=== PATIENT | female | born 1995 | race Caucasian/White ===

== ENCOUNTER 2018-11-30 18:00 | Emergency (ER) | payer MEDICAID ==
[2018-11-30 18:09] VITALS: TEMP 98.4
[2018-11-30] MEDS ORDERED: guaiFENesin 200 mg/10 ml Syrup UD PO ONE (18:32)
--- NOTE | 2018-11-30 18:42 | ED PDOC ---
Arrival/HPI - General Chief Complaint: Cough, Cold, Congestion Time Seen by Provider: 11/30/18 18:13 Historian: Patient - History of Present Illness Narrative History of Present Illness (Text): 11/30/18 18:39 23-year-old female with past medical history of asthma presents to the emergency room complaining of a dry cough for the past 4 days associated with wheezing, headache for the past 2 days, one episode of posttussive vomiting and pain to her chest when she coughs. Otherwise she reports no fever, chills, dizziness, nausea, shortness of breath, back pain, recent travel, sick contacts. Patient has no other complaints. PMD [place] Past Medical History - Tetanus Immunization Tetanus Immunization: Unknown - Pulmonary Hx Asthma: Yes - Psychiatric Hx Depression: No Hx Emotional Abuse: No Hx Physical Abuse: No Hx Substance Use: Yes (Marijuana) - Past Surgical History Past Surgical History: No Previous - Suicidal Assessment Feels Threatened In Home Enviroment: No Family/Social History Family/Social History: No Known Family HX Smoking Status: Never Smoked Hx Alcohol Use: No Hx Substance Use: Yes (Marijuana) Hx Substance Use Treatment: No Allergies/Home Meds Allergies/Adverse Reactions: Allergies No Known Allergies Allergy (Verified 11/30/18 18:09) Home Medications: Home Meds Medication Instructions Recorded Confirmed Albuterol 0.083% [Albuterol 0.083% 3 ml NEB Q6 PRN 11/30/18 11/30/18 Inhal Shakila (2.5 mg/3 ml) UD] Albuterol Sulfate [Ventolin Hfa] 2 puff NEB Q4 PRN 11/30/18 11/30/18 Review of Systems - Review of Systems Constitutional: absent: Fatigue, Fevers ENT: absent: Sore Throat, Rhinorrhea, Epistaxis Respiratory: Cough, Wheezing. absent: SOB, Sputum Cardiovascular: Chest Pain (only with coughing). absent: Palpitations, Edema Gastrointestinal: Vomiting (1 episode of post-tussive vomiting). absent: Abdominal Pain, Nausea Musculoskeletal: absent: Arthralgias, Back Pain, Neck Pain Skin: absent: Rash, Pruritis Neurological: Headache. absent: Dizziness Physical Exam Vital Signs Temp Pulse Resp BP Pulse Ox 11/30/18 18:05 98.4 F 65 18 130/82 99 Temperature: Afebrile Blood Pressure: Normal Pulse: Regular Respiratory Rate: Normal Appearance: Positive for: Well-Appearing, Non-Toxic, Comfortable Pain Distress: None Mental Status: Positive for: Alert and Oriented X 3 - Systems Exam Head: Present: Atraumatic, Normocephalic Pupils: Present: PERRL Extroacular Muscles: Present: EOMI Conjunctiva: Present: Normal Ears: Present: Normal, NORMAL TM Mouth: Present: Moist Mucous Membranes Pharnyx: Present: Normal. No: ERYTHEMA, EXUDATE, TONSILS ENLARGED Neck: Present: Normal Range of Motion. No: Meningeal Signs, Lymphadenopathy Respiratory/Chest: Present: Good Air Exchange, Wheezes (+b/l expiraory wheezing). No: Respiratory Distress, Accessory Muscle Use Cardiovascular: Present: Regular Rate and Rhythm, Normal S1, S2. No: Murmurs Abdomen: No: Tenderness, Distention, Peritoneal Signs Back: Present: Normal Inspection Upper Extremity: Present: Normal Inspection. No: Cyanosis, Edema Lower Extremity: Present: Normal Inspection. No: Edema Neurological: Present: GCS=15, CN II-XII Intact, Speech Normal, Motor Func Grossly Intact, Normal Sensory Function Skin: Present: Warm, Dry, Normal Color. No: Rashes Psychiatric: Present: Alert, Oriented x 3, Normal Insight, Normal Concentration Medical Decision Making ED Course and Treatment: 11/30/18 18:41 Patient medicated with Tylenol p.o., prednisone p.o., and 2 DuoNebs. On reevaluation, patient reports improvement of symptoms, denies any CP or SOB, still reports of a mild headache. On exam, patient remains awake alert and oriented 3 in no acute distress, she is smiling and in good spirits. Neck is supple, lungs are clear to auscultation, cardiac regular rate and rhythm, repeat neuro exam shows no focal findings. Given naprosyn po for headache. Patient feels comfortable going home. Advised to follow up with primary care physician in 1-2 days without fail. Advised to take medication as prescribed. Return to the emergency room at any time for any new or worsening symptoms. Patient states she fully agrees with and understands discharge instructions. States that she agrees with the plan and disposition. Verbalized and repeated discharge instructions and plan. I have given the patient opportunity to ask any additional questions. - Medication Orders Current Medication Orders: Albuterol/Ipratropium (Duoneb 3 Mg/0.5 Mg (3 Ml) Ud) 3 ml IH Q15M MEG Stop: 11/30/18 19:01 Discontinued Medications Acetaminophen (Tylenol 325mg Tab) 975 mg PO STAT STA Stop: 11/30/18 18:33 Guaifenesin (Robitussin) 200 mg PO ONCE ONE Stop: 11/30/18 18:33 Prednisone (Prednisone Tab) 40 mg PO STAT STA Stop: 11/30/18 18:33 - PA / LIFESTYLE COORDINATOR / Resident Statement MD/DO has reviewed & agrees with the documentation as recorded. Disposition/Present on Arrival - Present on Arrival Any Indicators Present on Arrival: No History of DVT/PE: No History of Uncontrolled Diabetes: No Urinary Catheter: No History of Decub. Ulcer: No History Surgical Site Infection Following: None - Disposition Have Diagnosis and Disposition been Completed?: Yes Diagnosis: Cough, Asthma Disposition: HOME/ ROUTINE Disposition Time: 20:00 Patient Plan: Discharge Patient Problems: Current Active Problems Problem Status Onset Cough Acute Asthma Acute Condition: STABLE Discharge Instructions (ExitCare): Asthma in Adults, Viral Upper Respiratory Infection, Adult (DC) Additional Instructions: Thank you for letting us take care of you today. You were treated for cough, asthma. The emergency medical care you received today was directed at your acute symptoms. If you were prescribed any medication, please fill it and take as directed. It may take several days for your symptoms to resolve. Return to the Emergency Department if your symptoms worsen, do not improve, or if you have any other problems. Please contact your doctor in 2 days for re-evaluation and follow up. Bring any paperwork you were given at discharge with you along with any medications you are taking to your follow up visit. Our treatment cannot replace ongoing medical care by a primary care provider (PCP) outside of the emergency department. Thank you for allowing the [facility] team to be part of your care today. Prescriptions: Albuterol HFA [Ventolin HFA 90 mcg/actuation (8 g)] 2 puff IH [id number] #1 puff Albuterol 0.083% [Albuterol Sulfate 3 Ml] 3 ml IH Q4 #100 neb Guaifenesin 400 mg PO QID #20 tablet Naproxen 500 mg PO BID PRN #20 tablet PRN Reason: Pain, Moderate (4-7) predniSONE [predniSONE Tab] 40 mg PO DAILY #8 tab Referrals: Jessy Byers MD [Primary Care Provider] - Follow up with primary Forms: [facility] ([place]), WORK NOTE, SCHOOL NOTE
[2018-11-30] MEDS: Albuterol-Ipratrop 3 mg / 0.5 (3 ml) UD IH SCH ×2 (18:50→19:16)
[2018-11-30] MEDS ORDERED: Naproxen 550 mg Tab PO STA (19:55)
[2018-11-30 20:07] VITALS: BP 116/82; PULSE 79; RESP 14; O2SAT 100
== END 2018-11-30 20:06 | disposition home or self-care (01) ==
LOC: ED 18:00
DX: J45.909 Unspecified asthma, uncomplicated (principal)